=== PATIENT | female | born 1985 | race Caucasian/White ===

== ENCOUNTER 2022-01-07 20:00 | Inpatient (IN) | payer BC, OTHER ==
[2022-01-07 21:50] VITALS: BMI 34.9
[2022-01-07] MEDS: ELECTROLYTE-148 SOLN 1,000 ML IV SCH (22:00)
[2022-01-07] MEDS ORDERED: AMPICILLIN - 2 GM in SODIUM CHLORIDE 100 ML IVPB ONE (22:05)
[2022-01-07] MEDS ORDERED: PROMETHAZINE HCL 25 MG/1 ML VIAL IVPUSH ONE (22:23)
[2022-01-07] MEDS ORDERED: BUTORPHANOL TARTRATE 1 MG/ML VIAL IVPB PRN (22:27)
[2022-01-07 22:37] LABS: BASO % 0.5 % (0-2.0); EOS % 0.2 % (0-4.5); HEMATOCRIT 32.8 % (32.4-45.2); HEMOGLOBIN 10.5 GM/dL (10.7-15.3); LYMPH % 11.8 % (8-40); MCH 24.3 pg (25.7-33.7); MEAN CELL VOLUME 75.9 fl (80-96); MEAN PLT VOLUME 8.7 fl (7.5-11.1); MONO % 5.1 % (3.8-10.2); NEUT % 82.4 % (42.8-82.8); PLATELET COUNT 331 10^3/uL (134-434); RBC 4.33 M/mm3 (3.60-5.2); RDW 14.7 % (11.6-15.6); WHITE BLOOD COUNT 16.6 K/mm3 (4.0-10.0)
[2022-01-07 22:43] LABS: PROTHROMBIN TIME (PATIENT) 11.5 SEC (9.7-13.0)
[2022-01-07 22:46] LABS: ACTIVATED PTT 28.9 SECONDS (25.2-36.5)
[2022-01-07] MEDS ORDERED: AMPICILLIN SODIUM 2 GM VIAL ONE (22:56)
[2022-01-07] MEDS ORDERED: SODIUM CHLORIDE 100 ML IVPB ONE (22:57)
[2022-01-07 22:58] LABS: CALCIUM 8.9 mg/dL (8.5-10.1)
[2022-01-07 22:59] LABS: BLOOD UREA NITROGEN 9.2 mg/dL (7-18)
[2022-01-07 23:02] LABS: CREATININE 0.9 mg/dL (0.55-1.3)
[2022-01-07 23:25] LABS: HEPATITIS B SURFACE AG MATERN NON-REACTIVE (NONREACTIVE); SYPHILIS W/ RPR CONF NON-REACTIVE (NONREACTIVE)
[2022-01-07] MEDS ORDERED: OXYTOCIN 20 UNITS in 0.9% NS 20 UNIT/1,000 ML INFUS.BAG IV ONE (23:26)
[2022-01-07] MEDS ORDERED: OXYTOCIN 20 UNITS in 0.9% NS 20 UNIT/1,000 ML INFUS.BAG IV SCH (23:45)
[2022-01-07] MEDS ORDERED: oxyCODONE HCL 5 MG TABLET PO PRN (23:48)
[2022-01-07] MEDS ORDERED: BENZOCAINE 20% 57 GM BOTTLE TP PRN (23:48)
[2022-01-07] MEDS ORDERED: BENZOCAINE 28 GM HEMORRHOIDAL OINTMENT TP PRN (23:48)
[2022-01-07] MEDS ORDERED: WITCH HAZEL 50% (TUCKS) 40 PAD/JAR PAD TP PRN (23:48)
[2022-01-07] MEDS ORDERED: ACETAMINOPHEN 325 MG TABLET (FP) PO PRN (23:48)
[2022-01-07] MEDS ORDERED: METHYLERGONOVINE MALEATE 0.2 MG/1 ML AMP IM PRN (23:48)
[2022-01-07] MEDS ORDERED: BISACODYL 10 MG SUPP.RECT RC PRN (23:48)
[2022-01-07 23:53] LABS: HIV INTERPRETATION NEGATIVE (NEGATIVE)
[2022-01-08] MEDS ORDERED: OXYTOCIN 20 UNITS in 0.9% NS 20 UNIT/1,000 ML INFUS.BAG IV SCH (01:25)
[2022-01-08] MEDS ORDERED: OXYTOCIN 20 UNITS in 0.9% NS 20 UNIT/1,000 ML INFUS.BAG IV ONE (01:25)
[2022-01-08] MEDS: IBUPROFEN 600 MG TABLET (FP) PO PRN ×4 (01:59→17:08)
[2022-01-08] MEDS: AMPICILLIN - 1 GM in SODIUM CHLORIDE 100 ML IVPB SCH ×3 (03:12→09:07)
[2022-01-08 07:53] LABS: HEMATOCRIT 32.6 % (32.4-45.2); HEMOGLOBIN 10.4 GM/dL (10.7-15.3); MCH 24.3 pg (25.7-33.7); MCHC 31.9 g/dl (32.0-36.0); MEAN CELL VOLUME 76.3 fl (80-96); MEAN PLT VOLUME 8.9 fl (7.5-11.1); PLATELET COUNT 309 10^3/uL (134-434); RBC 4.27 M/mm3 (3.60-5.2); RDW 14.6 % (11.6-15.6); WHITE BLOOD COUNT 22.6 K/mm3 (4.0-10.0)
[2022-01-08] MEDS: FERROUS SO4 325 MG TABLET (FP) PO SCH ×3 (09:04→17:08)
[2022-01-08] MEDS: PRENATAL VITAMINS W/ FOLIC ACID TABLET (FP) PO SCH (09:04)
[2022-01-08 09:36] LABS: POC NITRAZINE POS
[2022-01-08 12:12] LABS: ANISOCYTOSIS 0; MACROCYTOSIS 0
[2022-01-08] MEDS: ELECTROLYTE-148 SOLN 1,000 ML IV SCH (21:46)
[2022-01-08] MEDS ORDERED: SENNOSIDES/DOCUSATE COMBO (SENNA PLUS) TABLET (UD) PO PRN (22:00)
[2022-01-09] MEDS: PRENATAL VITAMINS W/ FOLIC ACID TABLET (FP) PO SCH (09:00)
[2022-01-09] MEDS: FERROUS SO4 325 MG TABLET (FP) PO SCH (09:00)
[2022-01-09] MEDS: IBUPROFEN 600 MG TABLET (FP) PO PRN (09:27)
[2022-01-09 10:09] VITALS: BP 117/73; PULSE 79; TEMP 97.6
== END 2022-01-09 12:20 | disposition home or self-care (01) | DRG 807 ==
LOC: JDEL 20:00 → JLDR 21:10 → J3W 01-08 01:51
PROVIDERS: ADMIT Obstetrics & Gynecology; ATTEND Obstetrics & Gynecology
PROC: 10E0XZZ Delivery of Products of Conception, External Approach (ICD-10-PCS; principal; 2022-01-07)
DX: O62.3 Precipitate labor (principal); Z37.0 Single live birth; O41.93X0 Disorder of amniotic fluid and membranes, unspecified, third trimester, not applicable or unspecified; O99.214 Obesity complicating childbirth; E66.9 Obesity, unspecified; Z3A.37 37 weeks gestation of pregnancy
CPT/HCPCS: 36415; 59409; 80048; 83986-QW; 85025; 85610; 85730; 86762; 86780; 86850; 86900; 86901; 87340; 87389; C9803; U0003; U0005